=== PATIENT | female | born 1990 ===

== ENCOUNTER 2018-06-25 14:16 | Inpatient (IN) ==
[2018-06-25] MEDS ORDERED: BISACODYL 5 MG TABLET PO PRN (15:46)
[2018-06-25] MEDS ORDERED: HYDROmorphone 2 MG/1 ML VIAL IV PRN (15:46)
[2018-06-25] MEDS ORDERED: KETOROLAC 10 MG TABLET PO PRN (15:46)
[2018-06-25] MEDS ORDERED: ceFAZolin 1,000 MG in SYRINGE 1 EACH IV ONE (15:48)
[2018-06-25] MEDS: LACTATED RINGERS 1,000 ML IV SCH (18:44)
[2018-06-26 04:33] LABS: Basophils % 0.3 % (0.0-0.8); Eosinophils # 0.1 10*3/uL (0.0-0.87); Eosinophils % 1.7 % (0.00-10.9); Hematocrit 35.6 VOL% (35.7-47.0); Hemoglobin 11.4 GM/DL (12.0-16.0); Immature Granulocytes % 0.4 %; Immature Granulocytes Absolute 0.03 #; Lymphocytes # 2.3 10*3/uL (1.4-4.0); Lymphocytes % 33.1 % (21.3-54.2); Mean Corpuscular Volume 93.2 FL (87-102); Mean Platelet Volume 11.6 FL (9.6-12.0); Monocytes % 10.1 % (1.7-12.7); Neutrophils % 54.4 % (38.7-73.9); Platelet Count 239 T/CUMM (130-400); Red Blood Count 3.82 MC/CUMM (3.8-5.5); White Blood Count 6.9 T/CUMM (4-12)
[2018-06-26 04:57] LABS: Calcium 8.1 MG/DL (8.5-10.1); Osmolality,Calculated 287.8 MOS/KG (273-304)
[2018-06-26] MEDS: LACTATED RINGERS 1,000 ML IV SCH ×3 (05:40→22:34)
[2018-06-26] MEDS ORDERED: FAMOTIDINE 20 MG TABLET PO ONE (06:00)
[2018-06-26] MEDS: PANTOPRAZOLE 40 MG TABLET PO SCH (08:21)
[2018-06-26] MEDS ORDERED: BUPIVACAINE 0.25% /EPI 10 ML VIAL ONE (08:34)
[2018-06-26] MEDS ORDERED: LIDOCAINE 1%/EPI INJ 20 ML VIAL ONE (08:35)
[2018-06-26] MEDS ORDERED: ceFAZolin 1,000 MG VIAL ONE (08:57)
[2018-06-26] MEDS ORDERED: PROPOFOL 200 MG/20 ML VIAL IV ONE (10:52)
[2018-06-26] MEDS ORDERED: fentaNYL 100 MCG/2 ML VIAL ONE (10:52)
[2018-06-26] MEDS ORDERED: ONDANSETRON 4 MG/2 ML VIAL ONE ×2 (10:52→11:01)
[2018-06-26] MEDS ORDERED: MIDAZOLAM 2 MG/2 ML VIAL ONE (10:52)
[2018-06-26] MEDS ORDERED: SEVOFLURANE 1 UNIT/15 MINUTE INH ONE (10:52)
[2018-06-26] MEDS ORDERED: ROCURONIUM 100 MG/10 ML VIAL IV ONE (10:53)
[2018-06-26] MEDS ORDERED: PHENYLEPHRINE 1 MG/10 ML SYRINGE IV ONE (10:53)
[2018-06-26] MEDS ORDERED: SUCCINYLCHOLINE 200 MG/10 ML VIAL ONE (10:53)
[2018-06-26] MEDS ORDERED: LACTATED RINGERS 1,000 ML IV ONE (10:53)
[2018-06-26] MEDS ORDERED: HYDROmorphone 2 MG/1 ML VIAL ONE (11:01)
[2018-06-26] MEDS ORDERED: ONDANSETRON 4 MG/2 ML VIAL IV PRN (11:02)
[2018-06-26] MEDS ORDERED: HYDROmorphone 2 MG/1 ML VIAL IV PRN (11:02)
[2018-06-26] MEDS: ONDANSETRON 4 MG/2 ML VIAL IV PRN (22:30)
[2018-06-27] MEDS: ONDANSETRON 4 MG/2 ML VIAL IV PRN (04:09)
[2018-06-27 06:52] LABS: Basophils % 0.2 % (0.0-0.8); Hematocrit 36.6 VOL% (35.7-47.0); Hemoglobin 11.8 GM/DL (12.0-16.0); Immature Granulocytes % 0.7 %; Immature Granulocytes Absolute 0.07 #; Lymphocytes # 0.9 10*3/uL (1.4-4.0); Lymphocytes % 8.3 % (21.3-54.2); Mean Corpuscular HGB Conc 32.2 GM/DL (32-36); Mean Corpuscular Volume 93.1 FL (87-102); Mean Platelet Volume 11.4 FL (9.6-12.0); Monocytes % 2.6 % (1.7-12.7); Neutrophils % 88.2 % (38.7-73.9); Platelet Count 238 T/CUMM (130-400); Red Blood Count 3.93 MC/CUMM (3.8-5.5); Red Cell Distribution Width 12.7 % (9.3-17.3); White Blood Count 10.5 T/CUMM (4-12)
[2018-06-27] MEDS: PANTOPRAZOLE 40 MG TABLET PO SCH (08:57)
[2018-06-27] MEDS: ACETAMINOPHEN 325 MG TABLET PO PRN ×2 (09:19→19:36)
[2018-06-27] MEDS: LACTATED RINGERS 1,000 ML IV SCH (12:48)
[2018-06-28] MEDS: LACTATED RINGERS 1,000 ML IV SCH ×2 (01:43→16:35)
[2018-06-28] MEDS: PANTOPRAZOLE 40 MG TABLET PO SCH (09:26)
[2018-06-28 16:08] VITALS: BP 117/85
== END 2018-06-28 18:45 | disposition home or self-care (01) | DRG 355 ==
LOC: EDBD → EDUNIT# → N.ED 14:16 → N.EDINP 15:46 → N.3E 16:42
PROVIDERS: ADMIT Surgery; ATTEND Surgery